=== PATIENT | female | born 2000 | race Hispanic/Latino ===

== ENCOUNTER 2024-06-08 10:47 | Emergency (ER) | payer SELFPAY ==
[2024-06-08] MEDS ORDERED: Ketorolac Tromethamine 30 MG (1 mL) VIAL ONE (11:49)
[2024-06-08] MEDS ORDERED: predniSONE 20 MG TAB ONE (11:50)
== END 2024-06-08 15:24 | disposition home or self-care (01) ==
LOC: ERS 10:47
DX: J10.1 Influenza due to other identified influenza virus with other respiratory manifestations (principal)
CPT/HCPCS: 87081; 87428; 87430; 96372; 99283; J1885; J7512